=== PATIENT | female | born 1990 | race Caucasian/White ===

== ENCOUNTER → 2018-06-05 | Outpatient (CLI) | payer BC ==
[2018-06-05 16:00] LABS: ABSOLUTE EOSINOPHILS # (AUTO) 0.1 10^3/uL (0.0-0.6); ABSOLUTE MONOCYTES (AUTO) 0.8 10^3/uL (0.1-1.4); ABSOLUTE NEUT (AUTO) 10.4 10^3/uL (1.7-8.2); BASOPHILS % (AUTO) 0.2 % (0-2); EOSINOPHILS % (AUTO) 0.7 % (0-6); HEMATOCRIT 33.1 % (36.0-47.0); HEMOGLOBIN 11.5 g/dL (12.0-15.5); MEAN CORPUSCULAR HEMOGLOBIN 32.1 pg (27.0-33.4); MEAN CORPUSCULAR HGB CONC 34.8 g/dL (32.0-36.0); MEAN CORPUSCULAR VOLUME 92 fl (80-97); MONOCYTES % (AUTO) 5.7 % (3-13); PLATELET COUNT 209 10^3/uL (150-450); RED BLOOD COUNT 3.59 10^6/uL (3.72-5.28); RED CELL DISTRIBUTION WIDTH 13.6 % (11.5-14.0); SEGMENTED NEUTROPHILS % (AUTO) 78.4 % (42-78); TOTAL CELLS COUNTED % (AUTO) 100 %; WHITE BLOOD COUNT 13.3 10^3/uL (4.0-10.5)
[2018-06-05 16:22] LABS: ALANINE AMINOTRANSFERASE 22 U/L (9-52); ALBUMIN 3.5 g/dL (3.5-5.0); ALKALINE PHOSPHATASE 68 U/L (38-126); ASPARTATE AMINO TRANSFERASE 17 U/L (14-36); BILIRUBIN,DIRECT 0.2 mg/dL (0.0-0.4); BILIRUBIN,TOTAL 0.2 mg/dL (0.2-1.3); TOTAL PROTEIN 6.4 g/dL (6.3-8.2)
[2018-06-08 08:08] LABS: THYROID STIM IMMUNOGLOBULIN 0.23 IU/L (0.00-0.55)
== END ==
LOC: OD 15:19
PROVIDERS: ATTEND Registered Nurse Women's Health Care, Ambulatory
DX: O09.892 Supervision of other high risk pregnancies, second trimester (principal); Z3A.00 Weeks of gestation of pregnancy not specified
CPT/HCPCS: 36415; 80076; 83519; 85025; 86376

== ENCOUNTER 2018-09-27 07:55 | Inpatient (IN) | payer BC ==
[2018-09-27 08:52] LABS: APPEARANCE,URINE SLIGHTLY-CLOUDY; BILIRUBIN,URINE NEGATIVE (NEGATIVE); COLOR,URINE YELLOW; GLUCOSE, URINE NEGATIVE (NEGATIVE); KETONES,URINE NEGATIVE (NEGATIVE); LEUKOCYTE ESTERASE,URINE NEGATIVE (NEGATIVE); NITRITE,URINE NEGATIVE (NEGATIVE); PROTEIN,URINE NEGATIVE (NEGATIVE); URINE SPECIFIC GRAVITY 1.018; UROBILINOGEN,URINE NEGATIVE mg/dL (<2.0)
[2018-09-27 09:38] LABS: URINE AMPHETAMINES SCREEN NEGATIVE; URINE BARBITURATES SCREEN NEGATIVE; URINE BENZODIAZEPINES SCREEN NEGATIVE; URINE COCAINE SCREEN NEGATIVE; URINE MARIJUANA (THC) SCREEN NEGATIVE; URINE METHADONE SCREEN NEGATIVE; URINE PHENCYCLIDINE SCREEN NEGATIVE
[2018-09-27] MEDS ORDERED: RINGERS SOLUTION,LACTATED 1,000 ML IV PRN (10:12)
[2018-09-27] MEDS ORDERED: EPHEDRINE SULFATE INJ 50 MG/1 ML AMPULE ONE (10:33)
[2018-09-27] MEDS ORDERED: MISOPROSTOL 0.2 MG TABLET ONE (10:33)
[2018-09-27] MEDS ORDERED: FENTANYL/BUPIVACAINE/NS/PF 300 MCG/150 ML RTUINJ EPI ONE (10:33)
[2018-09-27] MEDS ORDERED: LIDOCAINE 1% INJ-PF (10 MG/ML) 30 ML SDV ONE (10:33)
[2018-09-27] MEDS ORDERED: OXYTOCIN/NORMAL SALINE 20 UNIT/1,000 ML RTUINJ ONE (10:34)
[2018-09-27] MEDS ORDERED: BUPIVACAINE HCL 0.5 % INJ/PF 30 ML SDV ONE (10:34)
--- NOTE | 2018-09-27 10:57 | Admission Physical ---
Datetime Report Generated by CPN: 09/27/2018 10:57 CURRENT ADMISSION Chief Complaint: Uterine Contractions Admit Impression : Term, Intrauterine ; Active Labor Admit Plan: Admit to Unit ALLERGIES Medication Allergies: No Medication Allergies: No Known Allergies (09/27/2018) Latex: No Latex Allergies OBSTETRICAL HISTORY EDC: 09/22/2018 00:00 : 3 Para: 0 Term: 0 : 0 SAB: 0 IAB: 2 Ectopic: 0 Livin Cesareans: 0 VBACs: 0 Multiple Births: 0 Gestational Diabetes: No Rh Sensitization: No Incompetent Cervix: No HANNAH: No Infertility: No ART Treatment: No Uterine Anomaly: No IUGR: No Hx Previous C/S: No Macrosomia: No Hx Loss/Stillborn: No PIH: No Hx : No Placenta Previa/Abruption: No Depression/PP Depression: No PTL/PROM: No Post Hemorrhage: No Current Procedures: Ultrasound; NST SEE RECORDS Alcohol: No Marijuana : No Cocaine: No Other Illicit Drugs: No Cigarettes: Current Everyday Smoker. [id number] Cigarette Frequency: < 5 per day Advised to Stop: Yes MEDICAL HISTORY Diabetes: No Blood Transfusion: No Pulmonary Disease (Asthma, TB): No Breast Disease: No Hypertension: No Tower Technician Surgery: No Heart Disease: No Hosp/Surgery: No Autoimmune Disorder: No Anesthetic Complications: No Kidney Disease: No Abnormal Pap Smear: No Neuro/Epilepsy: No Psychiatric Disorders: No Other Medical Diseases: No Hepatitis/Liver Disease: No Significant Family History: No Varicosities/Phlebitis: No Trauma/Violence : No Thyroid Dysfunction: No INFECTIOUS HISTORY Gonorrhea: No Genital Herpes: No Chlamydia: No Tuberculosis: No Syphilis: No Hepatitis: No HIV/AIDS Exposure: No Rash or Viral Illness: No HPV: No PHYSICAL EXAM General: Normal HEENT: Normal Neurologic: Normal Thyroid: Normal Heart: Normal Lungs: Normal Breast: Normal Back: Normal Abdomen: Normal Genitourinary Exam: Normal Extremities: Normal DTRs: Normal Pelvic Type: Adequate VAGINAL EXAM Dilatation: 5 Effacement: 80 Station: -1 Contraction Comments: q2-3 MEMBRANES Membranes: Intact FETUS A EGA: 40.5 Monitoring: External US FHR- Baseline: 140 Variability: Moderate 6-25bpm Accelerations: 15X15 Decelerations: None FHR Category: Category I Admit Comment: at 40. 5 wks today. Presents c/o contractions. Scheduled IOL for tonight. After walking x 2 hours, pt did make cervical change to 5 cm. GBS negative. Desires an epidural. Will admit. Pt w/ hx of drug abuse and is on Subuxone daily. Hx of Hyperthyroidism. Attending MD today is Dr Rosario PLANS FOR LABOR AND DELIVERY Labor and Delivery: None Pain Management: Epidural Feeding Preference: Breast Benefit of Breast Feed Discussed: Yes Circumcision: Yes INFORMED CONSENT Assignment: Bartolo Rosario MD Signature: with User ID: [email or web address] : with User ID: [email or web address]
[2018-09-27 11:02] LABS: HEMATOCRIT 36.9 % (36.0-47.0); MEAN CORPUSCULAR HEMOGLOBIN 33.3 pg (27.0-33.4); MEAN CORPUSCULAR HGB CONC 35.1 g/dL (32.0-36.0); MEAN CORPUSCULAR VOLUME 95 fl (80-97); PLATELET COUNT 223 10^3/uL (150-450); WHITE BLOOD COUNT 24.5 10^3/uL (4.0-10.5)
[2018-09-27 11:21] LABS: ABSOLUTE LYMPHOCYTES# (MANUAL) 2.2 10^3/uL (0.5-4.7); ABSOLUTE NEUTROPHILS# (MANUAL) 21.3 10^3/uL (1.7-8.2); BASOPHILS % (MANUAL) 0 % (0-2); EOSINOPHILS % (MANUAL) 0 % (0-6); LYMPHOCYTES % (MANUAL) 7 % (13-45); MONOCYTES % (MANUAL) 4 % (3-13); SEGMENTED NEUTROPHILS % (MAN) 87 % (42-78); TOTAL CELLS COUNTED 100
[2018-09-27 11:22] LABS: RBC MORPHOLOGY COMMENT NORMO-CYTIC/CHROMIC
[2018-09-27 11:23] LABS: PLATELET COMMENT ADEQUATE
--- NOTE | 2018-09-27 13:39 | L&D Progress Notes ---
PROGRESS NOTES Datetime Report Generated by CPN: 09/27/2018 13:39 PROGRESS NOTE Impression: Normal Progression of Labor; Reassuring Heart Rate Procedures: Sterile Vag Exam Plan: Continue Present Management; Anticipate Vaginal Delivery Vital Signs : Reviewed; Within Normal Limits Comment: Pt comfortable with an epdural. SROM, clear fluid. No strong urge to push yet. Will labor down. Anticipate . Attending MD is Dr Rosario VAGINAL EXAM Dilatation: Ant Lip Dilatation: 5 Effacement: 100 Effacement: 80 Station: 1 Station: -1 Contractions: 2-4 min Contractions: q2-3 LAST VAGINAL EXAM-NURSING Dilitation: 9.5 Dilitation: 6.0 Dilitation: 5.0 Dilitation: 3.0 Effacement: 100 Effacement: 80 Effacement: 80 Effacement: 80 Station: 1 Station: 0 Station: -2 Station: -2 MEMBRANES Membranes: Ruptured Membranes: Intact Amniotic Fluid Color: Clear FETUS A FHR - Baseline: 120 Monitoring: External US Variability: Moderate 6-25bpm Accelerations: 15X15 FHR Comments: occassional small variable decel SIGNATURE SIGNATURE: [id number] SIGNATURE: [id number] Assignment: Bartolo Rosario MD Signature: with User ID: [email or web address] : with User ID: [email or web address]
[2018-09-27] MEDS ORDERED: ACETAMINOPHEN WITH CODEINE #3 TABLET PO PRN ×2 (15:54)
[2018-09-27] MEDS ORDERED: BENZOCAINE/MENTHOL AEROSOL SPRAY 56 ML TOP PRN (15:54)
[2018-09-27] MEDS ORDERED: ZOLPIDEM TARTRATE 5 MG TABLET PO PRN (15:54)
[2018-09-27] MEDS ORDERED: MEASLES,MUMPS&RUBELLA VACC/PF 0.5 ML VIAL SUBCUT PRN (15:54)
[2018-09-27] MEDS ORDERED: OXYTOCIN/NORMAL SALINE 20 UNIT/1,000 ML RTUINJ IV PRN (15:54)
[2018-09-27] MEDS ORDERED: DIBUCAINE 1% OINTMENT 28 GM TP PRN (15:54)
[2018-09-27] MEDS ORDERED: DIPH/PERTUSS(ACELL)/TETANUS VAC/PF 0.5 ML SYR (>=10YO) IM PRN (15:54)
--- NOTE | 2018-09-27 17:47 | Delivery Summary ---
Del Sum A-C Datetime Report Generated by CPN: 09/27/2018 17:47 DELIVERY PERSONNEL DELIVERY PERSONNEL: [id number] Delivery Doctor:: Aure Cary CNM Labor and Delivery Nurse:: Dagmar Grande RNmaterial worker Nurse:: Pavithra Dugan RN Nursery Nurse:: Demi Stephenson RN Clinical Psychology Teacher/INTERIOR DESIGN ASSISTANT: Alicia Fox CNA II MATERNAL INFORMATION Delivery Anesthesia: Epidural Medications After Delivery: Pitocin Bolus-Please Comment; Pitocin Drip 20 Units/1000ml NSS Meds After Delivery Comment: Pitocin 20 units in 1 L NS infusing per order Maternal Complications: None Provider Comments: of viable male , deivered BLAKE with a compound presentation for the left arm. Baby placed on pts abdoman crying, in stable condition. Cord clamped and cut after one minute. Cord blood collected. Placenta S/C/I, IV Pitocin infusing. ff w/ decreased lochia. Perineal laceration repaired. Pt and baby skin to skin in stable condition. Attending MD is Dr Rosario LABOR SUMMARY EDC: 09/22/2018 00:00 No. Babies in Womb: 1 Attempted: No Labor Anesthesia: Epidural LABOR INFORMATION Reason for Induction: Not Applicable Onset of Labor: 09/27/2018 10:00 Complete Dilatation: 09/27/2018 14:17 Oxytocin: N/A Group B Beta Strep: NEGATIVE Antibiotics # of Doses: 0 Steroids Given: None Reason Steroids Not Administered: Not Applicable MEMBRANES Membranes Rupture Method: Spontaneous Rupture of Membranes: 09/27/2018 13:29 Length of Rupture (hr): 2.05 Amniotic Fluid Color: Clear Amniotic Fluid Amount: Small Amniotic Fluid Odor: Normal STAGES OF LABOR Stage 1 hr: 4 Stage 1 min: 17 Stage 2 hr: 1 Stage 2 min: 15 Stage 3 hr: 0 Stage 3 min: 5 Total Time in Labor hr: 5 Total Time in Labor min: 37 VAGINAL DELIVERY Episiotomy: None Laceration #1: Perineal Laceration Extension #1: Second Degree Laceration Repair: Yes Laceration Repair Note: 2nd degree laceration repaired with 3.[address] needle under epidural anesthesia. Pt tolerated procedure well. Sponge Count Correct: N/A Sharps Count Correct: N/A CSECTION DELIVERY Primary Indication: N/A Secondary Indication: N/A CSection Incidence: N/A Labor: N/A Elective: N/A CSection Incision: N/A BABY A INFORMATION Infant Delivery Date/Time: 09/27/2018 15:32 Method of Delivery: Vaginal Born in Route : No : N/A Forceps: N/A Vacuum Extraction: N/A Shoulder Dystocia : No PRESENTATION/POSITION BABY A Presentation: Cephalic Cephalic Presentation: Vertex Vertex Position: Left Occipital Anterior WITH LT COMPOUND HAND Breech Presentation: N/A PLACENTA INFORMATION BABY A Placenta Delivery Time : 09/27/2018 15:37 Placenta Method of Delivery: Spontaneous Placenta Status: Delivered SCORES BABY A Heart Rate 1 min: >100 bpm Resp Effort 1 min: Good Cry Reflex Irritability 1 min: Cough or Sneeze or Pulls Away Muscle Tone 1 min: Active Motion Color 1 min: Body Merkel, Extremities Blue Resuscitation Effort 1 min: Tactile Stimulation SCORE 1 MIN: 9 Heart Rate 5 min: >100 bpm Resp Effort 5 min: Good Cry Reflex Irritability 5 min: Cough or Sneeze or Pulls Away Muscle Tone 5 min: Active Motion Color 5 min: Body Merkel, Extremities Blue Resuscitation Effort 5 min: Tactile Stimulation SCORE 5 MIN: 9 INFANT INFORMATION BABY A Gestational Age at Delivery: 40.5 Gestational Status: Full Term- 39- 40.6 Weeks Infant Outcome : Liveborn Condition : Stable Infant Sex: Male IDENTIFICATION BABY A Verification Date/Time: 09/27/2018 16:50 ID Band Number: [id number] Mother's Name Verified: Yes RN Verifying Infant: Terrance Hortonck, RN and BRory Hatfield RN WEIGHT/LENGTH BABY A Infant Birthweight (gm): 3244 Weight (lb): 7 Weight (oz): 2 Length (in): 20.50 Infant Length (cm): 52.07 CORD INFORMATION BABY A No. Cord Vessels: 3 Nuchal Cord : N/A Cord Blood Taken: Yes-For Eval (Mom's Blood Type - or O+) Infant Suction: None ASSESSMENT BABY A Complications: None Physical Findings at Delivery: Within Normal Limits Skin to Skin: Yes Skin to Skin Time (min): 60 Refrigerator Tester/ALS Called : No Care By: J Oxford, RN Transferred To: Remains with Mother BABY B INFORMATION : N/A SIGNATURES Assignment: Bartolo Rosario MD Signature: with User ID: Mayela : with User ID: [email or web address]
--- NOTE | 2018-09-27 17:48 | Warning Signs in Babies ---
VOD Warning Signs Datetime Report Generated by [facility]: 09/27/2018 17:48 VOD#[id number] -Warning Signs in Babies: Needs to be viewed. (09/27/2018 07:59:Dagmar Grande RN)
[2018-09-27] MEDS ORDERED: (PENDING PHARMACY ID) (Buprenorphine Hcl [Subutex 8 Mg Sublingual Tablet] 1 TAB) SL SCH (18:00)
[2018-09-27] MEDS: BUPRENORPHINE HCL 2 MG SUBLINGUAL TABLET SL SCH (18:35)
[2018-09-27] MEDS: DOCUSATE SODIUM 100 MG CAPSULE PO SCH (18:35)
[2018-09-27] MEDS: FERROUS SULFATE 325 MG TABLET PO SCH (18:35)
[2018-09-27] MEDS: IBUPROFEN 800 MG TABLET PO SCH (21:31)
[2018-09-28] MEDS: IBUPROFEN 800 MG TABLET PO SCH ×3 (05:10→21:59)
[2018-09-28 06:34] LABS: MEAN CORPUSCULAR HGB CONC 34.9 g/dL (32.0-36.0); MEAN CORPUSCULAR VOLUME 95 fl (80-97); PLATELET COUNT 193 10^3/uL (150-450); RED BLOOD COUNT 3.28 10^6/uL (3.72-5.28); RED CELL DISTRIBUTION WIDTH 12.9 % (11.5-14.0); WHITE BLOOD COUNT 24.8 10^3/uL (4.0-10.5)
[2018-09-28 06:55] LABS: HEMOGLOBIN 10.8 g/dL (12.0-15.5)
[2018-09-28] MEDS: BUPRENORPHINE HCL 2 MG SUBLINGUAL TABLET SL SCH ×2 (09:09→17:42)
[2018-09-28] MEDS: DOCUSATE SODIUM 100 MG CAPSULE PO SCH ×2 (09:09→17:43)
[2018-09-28] MEDS: SENNOSIDES/DOCUSATE 8.6-50 MG 1 EACH TABLET PO SCH (09:09)
[2018-09-28] MEDS: FERROUS SULFATE 325 MG TABLET PO SCH ×2 (09:09→17:43)
[2018-09-28] MEDS: PRENATAL VITAMIN W DHA CAPSULE PO SCH (09:09)
--- NOTE | 2018-09-28 10:49 | PDOC PROGRESS REPORT ---
Subjective-OB Progress Note for:: 09/28/18 Subjective: Pt doing well, no concerns. She reports light bleeding, reg diet and voiding without difficulty. Bonding with baby. Physical Exam (OB) Vital Signs: Temp Pulse Resp BP Pulse Ox 98.1 F 74 15 113/62 97 09/28/18 07:52 09/28/18 07:52 09/28/18 07:52 09/28/18 07:52 09/28/18 07:52 Intake & Output 09/27/18 09/28/18 09/29/18 06:59 06:59 06:59 Weight 73.5 kg - Lochia Lochia Amount: Scant < 10 ml Lochia Color: Rubra/Red - Abdomen Description: Soft Hernia Present: No Fundal Description: Firm Fundal Height: u/u - u/2 Objective-Diagnostic Laboratory: 09/28/18 06:10 09/27/18 09/27/18 09/28/18 10:34 10:34 06:10 WBC 24.5 H 24.8 H RBC 3.90 3.28 L Hgb 13.0 10.8 L D Hct 36.9 31.0 L MCV 95 95 MCH 33.3 33.0 MCHC 35.1 34.9 RDW 13.0 12.9 Plt Count 223 193 Seg Neutrophils % Not Reportable Lymphocytes % Not Reportable Monocytes % Not Reportable Eosinophils % Not Reportable Basophils % Not Reportable Absolute Neutrophils Not Reportable Absolute Lymphocytes Not Reportable Absolute Monocytes Not Reportable Absolute Eosinophils Not Reportable Absolute Basophils Not Reportable Blood Type O POSITIVE Antibody Screen NEGATIVE Assessment and Plan(PN) - Assessment and Plan (1) Vaginal delivery Is this a current diagnosis for this admission?: Yes (2) 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
[2018-09-29] MEDS: IBUPROFEN 800 MG TABLET PO SCH ×2 (05:36→14:06)
[2018-09-29 07:13] LABS: ABSOLUTE BASOPHILS # (AUTO) 0.1 10^3/uL (0.0-0.2); ABSOLUTE EOSINOPHILS # (AUTO) 0.3 10^3/uL (0.0-0.6); ABSOLUTE LYMPHOCYTES (AUTO) 3.8 10^3/uL (0.5-4.7); ABSOLUTE MONOCYTES (AUTO) 1.4 10^3/uL (0.1-1.4); ABSOLUTE NEUT (AUTO) 10.7 10^3/uL (1.7-8.2); BASOPHILS % (AUTO) 0.3 % (0-2); HEMATOCRIT 31.1 % (36.0-47.0); LYMPHOCYTES % (AUTO) 23.4 % (13-45); MEAN CORPUSCULAR HEMOGLOBIN 33.5 pg (27.0-33.4); MEAN CORPUSCULAR HGB CONC 35.2 g/dL (32.0-36.0); MEAN CORPUSCULAR VOLUME 95 fl (80-97); MONOCYTES % (AUTO) 8.7 % (3-13); PLATELET COUNT 184 10^3/uL (150-450); RED BLOOD COUNT 3.28 10^6/uL (3.72-5.28); SEGMENTED NEUTROPHILS % (AUTO) 65.6 % (42-78); TOTAL CELLS COUNTED % (AUTO) 100 %; WHITE BLOOD COUNT 16.3 10^3/uL (4.0-10.5)
[2018-09-29] MEDS: SENNOSIDES/DOCUSATE 8.6-50 MG 1 EACH TABLET PO SCH (09:19)
[2018-09-29] MEDS: FERROUS SULFATE 325 MG TABLET PO SCH (09:19)
[2018-09-29] MEDS: BUPRENORPHINE HCL 2 MG SUBLINGUAL TABLET SL SCH (09:19)
[2018-09-29] MEDS: PRENATAL VITAMIN W DHA CAPSULE PO SCH (09:19)
[2018-09-29] MEDS: DOCUSATE SODIUM 100 MG CAPSULE PO SCH (09:19)
--- NOTE | 2018-09-29 11:13 | PDOC PROGRESS REPORT ---
Subjective-OB Progress Note for:: 09/29/18 Subjective: Doing well, ready to go home, unsure if baby is going, voiding, Physical Exam (OB) Vital Signs: Temp Pulse Resp BP Pulse Ox 98.4 F 70 16 103/48 L 95 09/29/18 07:14 09/29/18 07:14 09/29/18 07:14 09/29/18 07:14 09/29/18 07:14 Intake & Output 09/28/18 09/29/18 09/30/18 06:59 06:59 06:59 Intake Total 240 Balance 240 Weight 73.5 kg - PIH/Pre-Eclampsia DTR's: 2 + Clonus: Negative Headache: Absent Epigastric Pain: No Visual Changes: No - Dressing Removed: No Incision: Dressing, Well Approximated - Lochia Lochia Amount: Small 10-25 ml Lochia Color: Rubra/Red - Abdomen Description: Soft Hernia Present: No Fundal Description: Firm, Midline Fundal Height: u/u - u/2 Objective-Diagnostic Laboratory: 09/29/18 06:52 09/29/18 06:52 WBC 16.3 H RBC 3.28 L Hgb 11.0 L Hct 31.1 L MCV 95 MCH 33.5 H MCHC 35.2 RDW 13.0 Plt Count 184 Seg Neutrophils % 65.6 Lymphocytes % 23.4 Monocytes % 8.7 Eosinophils % 2.0 Basophils % 0.3 Absolute Neutrophils 10.7 H Absolute Lymphocytes 3.8 Absolute Monocytes 1.4 Absolute Eosinophils 0.3 Absolute Basophils 0.1 Assessment and Plan(PN) - Assessment and Plan (1) Vaginal delivery Is this a current diagnosis for this admission?: Yes (2) 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
[2018-09-29 11:16] VITALS: BP 123/66
--- NOTE | 2018-09-29 11:16 | PDOC DISCHARGE SUMMARY ---
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 Is this a current diagnosis for this admission?: Yes Discharge Data - Discharge Medication Home Medications: Buprenorphine HCl [Subutex 8 mg Sublingual Tablet] 1 tab SL BID 09/27/18 Pnv No.95/Ferrous Fum/Folic AC [ Vitamin Tablet] 1 tab PO DAILY Gestational Age: 40.5 Reason(s) for Admission: Onset of Labor Procedures: NST, Ultrasound Intrapartum Procedure(s): Spontaneous Vaginal Delivery Complication(s): Laceration-Perineal Laceration-Degree: 2nd - Diagnosis Test Laboratory: Temp Pulse Resp BP Pulse Ox 98.4 F 70 16 103/48 L 95 09/29/18 07:14 09/29/18 07:14 09/29/18 07:14 09/29/18 07:14 09/29/18 07:14 09/27/18 09/27/18 09/28/18 08:02 10:34 06:10 RBC 3.90 3.28 L Hgb 13.0 10.8 L D Hct 36.9 31.0 L Urine Opiates Screen NEGATIVE 09/29/18 06:52 RBC 3.28 L Hgb 11.0 L Hct 31.1 L Urine Opiates Screen - Discharge information/Instructions Discharge Activity: Activity As Tolerated, No Lifting Over 10 Pounds, No Lifting /Push/Pulling, Pelvic Rest Discharge Diet: As Tolerated, Regular Disposition: HOME, SELF-CARE Follow up with: [facility] in: 4, Weeks
== END 2018-09-29 14:06 | disposition home or self-care (01) | DRG 806 ==
LOC: LC 07:55 → LR 10:10 → 2S 17:40
PROVIDERS: ADMIT Obstetrics & Gynecology Gynecology; ATTEND Obstetrics & Gynecology Gynecology
PROC: 10E0XZZ Delivery of Products of Conception, External Approach (ICD-10-PCS; principal; 2018-09-27)
PROC: 0KQM0ZZ Repair Perineum Muscle, Open Approach (ICD-10-PCS; 2018-09-27)
PROC: 4A1HXCZ Monitoring of Products of Conception, Cardiac Rate, External Approach (ICD-10-PCS; 2018-09-27)
DX: O99.324 Drug use complicating childbirth (principal); F11.20 Opioid dependence, uncomplicated; Z37.0 Single live birth; O70.1 Second degree perineal laceration during delivery; O99.334 Smoking (tobacco) complicating childbirth; F17.210 Nicotine dependence, cigarettes, uncomplicated; O99.284 Endocrine, nutritional and metabolic diseases complicating childbirth; E05.90 Thyrotoxicosis, unspecified without thyrotoxic crisis or storm; O32.6XX0 Maternal care for compound presentation, not applicable or unspecified; Z3A.40 40 weeks gestation of pregnancy
CPT/HCPCS: 36415; 80307; 81005; 85025; 85027; 86592; 86850; 86900; 86901; 94760; J0571; J2590; J3010; J3490